=== PATIENT | female | born 1965 | race Caucasian/White ===

== ENCOUNTER 2016-07-07 16:17 | Emergency (ER) | payer SELFPAY ==
[~2016-07-07] VITALS: Ht 154.9 cm; Wt 54.0 kg
[2016-07-07 16:24] VITALS: Ht 154.9 cm; Wt 54.0 kg
[2016-07-07] MEDS ORDERED: SODIUM CHLORIDE 0.9% 1L BAG IV* STA (16:44)
[2016-07-07] MEDS ORDERED: ACETAMINOPHEN 325 MG TAB PO ONE (17:00)
[2016-07-07 17:18] LABS: ADD SCAN DIFF NO
[2016-07-07 17:20] LABS: BASOPHILS % 0.3 % (0.0-2.0); HEMATOCRIT 37.8 % (37.0-47.0); HEMOGLOBIN 12.4 g/dl (12.0-16.0); LYMPHOCYTES # 1.2 10^3/ul (0.8-2.9); LYMPHOCYTES % 15.5 % (15.0-51.0); MEAN CORPUSCULAR HEMOGLOBIN 26.1 pg (29.0-33.0); MEAN CORPUSCULAR HGB CONC 32.8 g/dl (32.0-37.0); MEAN CORPUSCULAR VOLUME 79.6 fl (82.0-101.0); MEAN PLATELET VOLUME 9.7 fl (7.4-10.4); MONOCYTE # 0.6 10^3/ul (0.3-0.9); MONOCYTES % 7.5 % (0.0-11.0); NEUTROPHIL # 5.8 10^3/ul (1.6-7.5); NEUTROPHILS % 76.4 % (39.0-77.0); PLATELET COUNT 252 10^3/UL (140-415); RED BLOOD COUNT 4.75 10^6/ul (4.20-5.40); RED CELL DISTRIBUTION WIDTH 13.4 % (11.5-14.5); WHITE BLOOD COUNT 7.6 10^3/ul (4.8-10.8)
--- NOTE | 2016-07-07 17:25 | RADRPT ---
PROCEDURE: Chest x-ray CLINICAL INDICATION: Sepsis TECHNIQUE: Chest single view COMPARISON: None FINDINGS: The heart is normal in size. The pulmonary vessels are normal in caliber. The lungs are clear. Th e costophrenic angles are sharp. The visualized bony thorax is unremarkable. IMPRESSION: No acute cardiopulmonary disease. RPTAT: HH .Aleksandr Burdick MD, Date Time Electronically viewed and signed by .Aleksandr Burdick MD, MD on 07/07/2016 17:25 .W/
[2016-07-07 17:44] LABS: ALBUMIN 3.7 g/dl (3.3-4.9)
[2016-07-07 17:45] LABS: CHLORIDE 97 mmol/L (97-110); INR 1.02; POTASSIUM 3.4 mmol/L (3.5-5.1); PROTIME 13.4 Sec (12.2-14.2); SODIUM 133 mmol/L (135-144)
[2016-07-07 17:46] LABS: PARTIAL THROMBOPLASTIN TIME 26.2 Sec (25.0-35.0)
[2016-07-07 17:47] LABS: ALBUMIN/GLOBULIN RATIO 1.08; ALKALINE PHOSPHATASE 137 IU/L (42-121); ANION GAP 17 (8-16); ASPARTATE AMINO TRANSFERASE 29 IU/L (15-46); BILIRUBIN,INDIRECT 0.6 mg/dl (0-1.1); BILIRUBIN,TOTAL 0.6 mg/dl (0.2-1.3); CARBON DIOXIDE 22 mmol/L (21-31); CREATININE 0.53 mg/dl (0.44-1.00); TOTAL PROTEIN 7.1 g/dl (6.1-8.1)
[2016-07-07 17:48] LABS: ALANINE AMINOTRANSFERASE 34 IU/L (13-69); BLOOD UREA NITROGEN 11 mg/dl (7-20); CALCIUM 8.8 mg/dl (8.4-10.2); GLUCOSE 347 mg/dl (70-220)
[2016-07-07 18:01] LABS: TROPONIN-I < 0.012 ng/ml (0.00-0.12)
[2016-07-07 18:21] LABS: ADD UMIC YES; URINE BILIRUBIN (Dip) NEGATIVE (NEGATIVE); URINE BLOOD (Dip) 3+ (NEGATIVE); URINE COLOR LT. YELLOW (YELLOW); URINE GLUCOSE (Dip) >=1000 % (NEGATIVE); URINE KETONES (Dip) 15 (NEGATIVE); URINE LEUKOCYTE ESTERASE (Dip) TRACE (NEGATIVE); URINE NITRITE (Dip) NEGATIVE (NEGATIVE); URINE TOTAL PROTEIN (Dip) 2+ (NEGATIVE); URINE UROBILINOGEN (Dip) 1.0 E.U./dL (0.1-1.0)
[2016-07-07 18:37] LABS: BACTERIA,URINE MANY; SQUAMOUS EPITHELIAL CELL,UR MANY
[2016-07-07] MEDS ORDERED: IBUP-1542 PO (19:13)
[2016-07-07] MEDS ORDERED: ACET325T33 PO (19:13)
[2016-07-07] MEDS ORDERED: METF500T4 PO (19:13)
[2016-07-07] MEDS ORDERED: CIPR500T4 PO (19:13)
--- NOTE | 2016-07-07 19:14 | ERD ---
ER Documentation Chief Complaint Date/Time DATE: 07/07/16 TIME: 19:14 Chief Complaint pt bib family with c/o general weakness, pain all over, headache, fever HPI Patient is a 51-year-old female with no medical problems who presents with fever. She has had fever for the past 3 days. She denies cough or urinary symptoms. She said that she has whole body pain. She has had vomiting but no diarrhea. She tried Tylenol yesterday but nothing today. Upon review of old medical records this is the patient's first visit to the emergency department. She does not currently have a primary doctor. ROS All systems reviewed and are negative except as per history of present illness. Medications Home Meds Active Scripts Acetaminophen* (Tylenol*) 325 Mg Tablet, 2 TAB PO Q8 Y for PAIN AND OR ELEVATED TEMP, #20 TAB Prov:AMBREEN PEACE MD 07/07/16 Ibuprofen* (Motrin*) 600 Mg Tab, 600 MG PO Q6H Y for PAIN AND OR ELEVATED TEMP, #30 TAB Prov:AMBREEN PEACE MD 07/07/16 Metformin* (Glucophage*) 500 Mg Tab, 500 MG PO BID, #60 TAB Prov:AMBREEN PEACE MD 07/07/16 Ciprofloxacin Hcl* (Ciprofloxacin Hcl*) 500 Mg Tablet, 500 MG PO BID for 7 Days , TAB Prov:AMBREEN PEACE MD 07/07/16 Allergies Allergies: Coded Allergies: No Known Allergy (Unverified , 07/07/16) PMhx/Soc Medical and Surgical Hx: pt denies Medical Hx, pt denies Surgical Hx Hx Alcohol Use: No Hx Substance Use: No Hx Tobacco Use: No Smoking Status: Never smoker FmHx Family History: diabetes Physical Exam Vitals Vital Signs Date Time Temp Pulse Resp B/P Pulse Ox O2 Delivery O2 Flow Rate FiO2 07/07/16 16:47 Nasal Cannula 07/07/16 16:24 102.8 112 22 142/63 100 Physical Exam Const: Mild distress Head: Atraumatic Eyes: Normal Conjunctiva ENT: Normal External Ears, Nose and Mouth. Neck: Full range of motion..~ No meningismus. Resp: Clear to auscultation bilaterally Cardio: Regular rate and rhythm, no murmurs Abd: Soft, non tender, non distended. Normal bowel sounds Skin: No petechiae or rashes Back: No midline or flank tenderness Ext: No cyanosis, or edema Neur: Awake and alert Psych: Normal Mood and Affect Result Diagram: 07/07/16 1645 07/07/16 1645 Results 24 hrs Laboratory Tests Test 07/07/16 16:45 07/07/16 17:55 White Blood Count 7.610^3/ul Red Blood Count 4.7510^6/ul Hemoglobin 12.4g/dl Hematocrit 37.8% Mean Corpuscular Volume 79.6fl Mean Corpuscular Hemoglobin 26.1pg Mean Corpuscular Hemoglobin Concent 32.8g/dl Red Cell Distribution Width 13.4% Platelet Count 83075^3/UL Mean Platelet Volume 9.7fl Neutrophils % 76.4% Lymphocytes % 15.5% Monocytes % 7.5% Eosinophils % 0.0% Basophils % 0.3% Nucleated Red Blood Cells % 0.0/100WBC Neutrophils # 5.810^3/ul Lymphocytes # 1.210^3/ul Monocytes # 0.610^3/ul Eosinophils # 0.010^3/ul Basophils # 0.010^3/ul Nucleated Red Blood Cells # 0.010^3/ul Prothrombin Time 13.4Sec Prothrombin Time Ratio 1.0 INR International Normalized Ratio 1.02 Activated Partial Thromboplast Time 26.2Sec Sodium Level 133mmol/L Potassium Level 3.4mmol/L Chloride Level 97mmol/L Carbon Dioxide Level 22mmol/L Anion Gap 17 Blood Urea Nitrogen 11mg/dl Creatinine 0.53mg/dl Glucose Level 347mg/dl Lactic Acid Level 1.1mmol/L Calcium Level 8.8mg/dl Total Bilirubin 0.6mg/dl Direct Bilirubin 0.00mg/dl Indirect Bilirubin 0.6mg/dl Aspartate Amino Transf (AST/SGOT) 29IU/L Alanine Aminotransferase (ALT/SGPT) 34IU/L Alkaline Phosphatase 137IU/L Troponin I < 0.012ng/ml Total Protein 7.1g/dl Albumin 3.7g/dl Globulin 3.40g/dl Albumin/Globulin Ratio 1.08 Urine Color LT. YELLOW Urine Clarity CLOUDY Urine pH 5.5 Urine Specific [place]tern[place] 1.010 Urine Ketones 15 Urine Nitrite NEGATIVE Urine Bilirubin NEGATIVE Urine Urobilinogen 1.0 E.U./dL Urine Leukocyte Esterase TRACE Urine Microscopic RBC 2-5/HPF Urine Microscopic WBC >200/HPF Urine Squamous Epithelial Cells MANY Urine Bacteria MANY Urine Hemoglobin 3+ Urine Glucose >=1000% Urine Total Protein 2+ Current Medications Medications (Trade) Dose Ordered Sig/Mile Route PRN Reason Start Time Stop Time Status Last Admin Dose Admin Sodium Chloride (NS) 1,670 ml BOLUS OVER 2 HOURS STAT IV* 07/07/16 16:44 07/07/16 16:46 DC 07/07/16 17:12 Acetaminophen (Tylenol Tab) 650 mg ONCE ONCE PO 07/07/16 17:00 07/07/16 17:01 DC 07/07/16 17:12 Ciprofloxacin (Cipro) 500 mg ONCE ONCE PO 07/07/16 19:30 07/07/16 19:31 DC 07/07/16 19:18 Procedures/MDM EKG read by me: Rate/Rhythm: Regular rate and rhythm at a rate of 96 Intervals: Normal Impression: No evidence of ischemia or arrhythmia Chest x-ray shows no pneumonia per radiology. Patient is a 51-year-old female who presents with fever for the past 3 days. Urinalysis shows obvious infection and I believe she likely has a pyelonephritis. The patient was febrile but had a normal heart rate. The patient was given fluids and Tylenol and feels much better. Her laboratory studies showed hyperglycemia and I am concerned about new onset diabetes. I will start her on metformin 500 mg twice daily. She will be given Cipro for the pyelonephritis. The patient will be discharged and can follow-up with a local clinics within 24-48 hours. She can return sooner for any worsening symptoms. Her lactic acid is normal and I doubt sepsis. Departure Diagnosis: Primary Impression: Pyelonephritis Additional Impression: Fever Fever type: unspecified Qualified Code: R50.9 - Fever, unspecified fever cause Condition: Fair Patient Instructions: Pyelonephritis, Female (Adult), Hyperglycemia, New Onset (Diabetes Suspected) [facility] Usted se downs hecho un examen mdico de control que le indica que no est en monica condicin que requiera tratamiento urgente en el Departamento de Emergencia. Un estudio ms profundo y el tratamiento de alanis condicin pueden esperar sin ningn riesgo hasta que usted sea atendida/o en el consultorio de alanis mdico o monica cl opal. Es responsabilidad suya arreglar monica jennifer para el seguimiento del grzegorz. MANEJO DE CONDICIONES NO URGENTES EN EL FUTURO 1) Si usted tiene un mdico de atencin primaria: Usted debera llamar a alanis mdico de atencin primaria antes de venir al departamento de emergencia. Despus de las horas de consultorio, alanis doctor o alanis asociado/a est disponible por telfono. El mdico o enfermero de thad en el servicio telefnico puede asesorarle por yan medio para atender el problema, o grzegorz contrario se puede programar monica jennifer. 2) Si usted no tiene un mdico de atencin primaria: Llame al mdico o clnica de referencia que aparece abajo bill las horas de consultorio para hacer monica jennifer para que le vean. CLINICAS: [place] [phone] [facility] [phone] [facility]. [facility] [phone] [facility]. [place] [address] [phone] [facility] [place] [phone] [place] [id number] [phone] Additional Instructions: Llame al doctor MAANA y sari monica JENNIFER PARA DENTRO DE 1-2 GIPSON.Dgale a la secretaria que nosotros le instruimos hacer esta jennifer.Avise o llame si alanis condicin se empeora antes de la jennifer. Regresa aqui si peor o no mejor. AMBREEN PEACE MD Jul 07, 2016 19:14
[2016-07-07] MEDS ORDERED: CIPROFLOXACIN 500 MG TAB PO ONE (19:30)
[2016-07-07 20:03] VITALS: BP 112/75; PULSE 84; RESP 20; TEMP 98.7
== END 2016-07-07 20:05 | disposition home or self-care (01) ==
LOC: E/R 16:17
DX: N12 Tubulo-interstitial nephritis, not specified as acute or chronic (principal); R53.1 Weakness; Z79.84 Long term (current) use of oral hypoglycemic drugs
CPT/HCPCS: 36415; 71010; 80053; 81001; 81003; 83605; 84484; 85025; 85610; 85730; 87040; 87086; 93005; 99285; J7030